=== PATIENT | male | born 1950 | race Caucasian/White ===

== ENCOUNTER 2019-07-20 17:30 | Emergency (ER) | payer OTHER ==
[2019-07-20] MEDS ORDERED: Levofloxacin500mg IV 500 MG/100 ML BAG IV ONE (18:15)
[2019-07-20] MEDS ORDERED: NA CHLORIDE 0.9% 1,000 ML ONE (18:15)
[2019-07-20 19:02] LABS: Absolute Lymphocytes (CBC) 2.2 K/uL (0.7-4.9); Basophils % 0.5 % (0-1.3); Lymphocytes % 29.1 % (15.3-44.8); MPV 9.7 fL (7.6-11.3); RBC Red Blood Cell Count 5.02 M/uL (4.33-5.43)
[2019-07-20 19:05] LABS: Protime INR 1.03
[2019-07-20 19:25] LABS: ALT/SGPT 25 U/L (12-78); AST/SGOT 14 U/L (15-37); Albumin 4.1 g/dL (3.4-5.0); Alkaline Phosphatase 89 U/L (45-117); BUN Blood Urea Nitrogen 8 mg/dL (7-18); Bicarbonate 27 mmol/L (21-32); Bilirubin Direct 0.1 mg/dL (0-0.2); Bilirubin Total 0.4 mg/dL (0.2-1.0); Glucose Level 105 mg/dL (74-106); Lipase 92 U/L (73-393); Magnesium 2.2 mg/dL (1.8-2.4); NT PRO-BNP 41 pg/mL (<125); Potassium 3.7 mmol/L (3.5-5.1); Protein, Total 7.8 g/dL (6.4-8.2); Sodium Level 135 mmol/L (136-145); Troponin (Emerg Dept Use Only) < 0.02 ng/mL (0.0-0.045)
[2019-07-20 19:37] LABS: Urine Blood NEGATIVE (NEG); Urine Glucose NEGATIVE (NEG); Urine Protein NEGATIVE (NEG); Urine Specific Gravity <1.005 (1.005-1.030)
--- NOTE | 2019-07-20 20:20 | RAD REPORT ---
EXAM DESCRIPTION: Mackenzie Single View07/20/2019 6:18 pm CLINICAL HISTORY: Chest pain COMPARISON: 2017 FINDINGS: The lungs appear clear of acute infiltrate. The heart is normal size IMPRESSION: No acute abnormalities displayed
--- NOTE | 2019-07-20 20:31 | RAD REPORT ---
EXAM DESCRIPTION: CT - Abdomen Pelvis Wo Contrast - 07/20/2019 7:57 pm CLINICAL HISTORY: Abdominal pain /left lower quadrant pain with diarrhea COMPARISON: None TECHNIQUE: Computed axial tomography of the abdomen and pelvis was obtained. IV was not requested. O ral contrast was given. Coronal reconstructions performed. All CT scans are performed using dose optimization technique as appropriate and may include automated exposure control or mA/KV adjustment according to patient size. FINDINGS: The evaluation of solid organs and vessels is limited secondary to the lack of contrast a dministration. Sub centimeter low-density area within the right lobe of the liver nonspecific but probably a cyst Spleen, pancreas and adrenals appear grossly normal A 27 millimeter low-density mass extends off the right kidney. It is nonspecific but may represent cy st. 1 millimeter nonobstructing right renal calculus. Mild bilateral hydronephrosis and dilatation th e ureters bilaterally. The bladder is markedly distended. The prostate gland is mildly enlarged. Asymmetric tissue extends from the anterior left aspect of the prostate abutting the bladder. There is no evidence diverticulitis The abdominal aorta is ectatic with an AP diameter of 2.9 centimeters. Tiny umbilical hernia The wall of the proximal stomach appears thickened IMPRESSION: Marked bladder distention. Bilateral dilatation of the ureters with mild hydronephrosis may be the sequela of the bladder distention. After the bladder is decompressed with a Macdonald catheter ultrasound of the kidneys would be helpful to see if the hydronephrosis has resolved Apparent thickening of the wall of the proximal stomach may be secondary to pathology such as inflamm ation or mass. Incomplete distention is a another consideration Prominent asymmetric tissue extends from the left anterior aspect of the prostate abutting the bladde r. This may represent prostatic hypertrophy or neoplasm
--- NOTE | 2019-07-20 22:18 | EDPHYS ---
Physician Documentation [facility] Name: Ryan Carr Age: 69 yrs Sex: Male : 1950 Arrival Date: 07/20/2019 Time: 17:33 Bed 13 Private MD: Eduardo Givens HPI: 07/20 18:08 This 69 yrs old Male presents to ER via Ambulatory with complaints of sue Abdominal Pain. 18:08 The patient presents with abdominal pain in the lower abdomen, in the left upper sue quadrant. Onset: The symptoms/episode began/occurred 3 day(s) ago. The symptoms do not radiate. Associated signs and symptoms: none. Modifying factors: The symptoms are alleviated by nothing, the symptoms are aggravated by nothing. Severity of pain: At its worst the pain was mild in the emergency department the pain is unchanged. The patient has experienced similar episodes in the past, several times. Historical: - Allergies: 17:39 Iodine; aa5 17:39 Flagyl; aa5 17:39 Iodinated Contrast Media - IV Dye; aa5 17:39 SUCCINYLCHOLINE; aa5 - PMHx: 17:42 Hypertension; Hyperlipidemia; Faisal's esophagus; Arthritis; Acid Reflux; aa5 Schizoaffective disorder; - PSHx: 17:42 Tonsillectomy; Appendectomy; Cholecystectomy; Rhinoplasty; kidney stones; fara knees; aa5 - Immunization history:: Flu vaccine is not up to date. - Social history:: Smoking status: Patient uses tobacco products, smokes two packs cigarettes per day. - Ebola Screening: : No symptoms or risks identified at this time. - Family history:: not pertinent. ROS: 18:08 Constitutional: Negative for fever, chills, and weight loss, Eyes: Negative for injury, sue pain, redness, and discharge, ENT: Negative for injury, pain, and discharge, Neck: Negative for injury, pain, and swelling, Cardiovascular: Negative for chest pain, palpitations, and edema, Respiratory: Negative for shortness of breath, cough, wheezing, and pleuritic chest pain, Back: Negative for injury and pain, : Negative for injury, bleeding, discharge, and swelling, MS/Extremity: Negative for injury and deformity, Skin: Negative for injury, rash, and discoloration, Neuro: Negative for headache, weakness, numbness, tingling, and seizure, Psych: Negative for depression, anxiety, suicide ideation, homicidal ideation, and hallucinations, Allergy/Immunology: Negative for hives, rash, and allergies, Endocrine: Negative for neck swelling, polydipsia, polyuria, polyphagia, and marked weight changes, Hematologic/Lymphatic: Negative for swollen nodes, abnormal bleeding, and unusual bruising. 18:08 Abdomen/GI: Positive for abdominal pain, of the left lower quadrant. Exam: 18:08 Constitutional: This is a well developed, well nourished patient who is awake, alert, sue and in no acute distress. Head/Face: Normocephalic, atraumatic. Eyes: Pupils equal round and reactive to light, extra-ocular motions intact. Lids and lashes normal. Conjunctiva and sclera are non-icteric and not injected. Cornea within normal limits. Periorbital areas with no swelling, redness, or edema. ENT: Nares patent. No nasal discharge, no septal abnormalities noted. Tympanic membranes are normal and external auditory canals are clear. Oropharynx with no redness, swelling, or masses, exudates, or evidence of obstruction, uvula midline. Mucous membranes moist. Neck: Trachea midline, no thyromegaly or masses palpated, and no cervical lymphadenopathy. Supple, full range of motion without nuchal rigidity, or vertebral point tenderness. No Meningismus. Chest/axilla: Normal chest wall appearance and motion. Nontender with no deformity. No lesions are appreciated. Cardiovascular: Regular rate and rhythm with a normal S1 and S2. No gallops, murmurs, or rubs. Normal PMI, no JVD. No pulse deficits. Respiratory: Lungs have equal breath sounds bilaterally, clear to auscultation and percussion. No rales, rhonchi or wheezes noted. No increased work of breathing, no retractions or nasal flaring. Back: No spinal tenderness. No costovertebral tenderness. Full range of motion. Male : Normal genitalia with no discharge or lesions. Skin: Warm, dry with normal turgor. Normal color with no rashes, no lesions, and no evidence of cellulitis. MS/ Extremity: Pulses equal, no cyanosis. Neurovascular intact. Full, normal range of motion. Neuro: Awake and alert, GCS 15, oriented to person, place, time, and situation. Cranial nerves II-XII grossly intact. Motor strength 5/5 in all extremities. Sensory grossly intact. Cerebellar exam normal. Normal gait. Psych: Awake, alert, with orientation to person, place and time. Behavior, mood, and affect are within normal limits. 18:08 Abdomen/GI: Inspection: abdomen appears normal, Bowel sounds: normal, Palpation: mild abdominal tenderness, in the left lower quadrant, Liver: no appreciated palpable abnormalities, Hernia: not appreciated. Vital Signs: 17:39 BP 135 / 82; Pulse 77; Resp 18 S; Temp 97.4(TE); Pulse Ox 99% on R/A; Weight 97.98 kg aa5 (R); Height 5 ft. 9 in. (175.26 cm) (R); Pain 3/10; 19:30 BP 127 / 79; Pulse 60; Resp 16; Pulse Ox 98% on R/A; Pain 0/10; aa1 20:30 BP 124 / 82; Pulse 66; Resp 18; Pulse Ox 98% on R/A; Pain 2/10; aa1 21:58 BP 143 / 87; Pulse 69; Resp 18; Pulse Ox 99% on R/A; Pain 0/10; aa1 17:39 Body Mass Index 31.90 (97.98 kg, 175.26 cm) aa5 MDM: 17:49 Patient medically screened. [facility] 18:10 Data reviewed: vital signs, nurses notes, lab test result(s), EKG, radiologic studies, sue CT scan, plain films. 20:59 ED course: Examined pt after CT scan. Bladder distention felt upon palpation after pt kb emptied his bladder. Bladder scanner ordered and revealed PVR of 999cc. Henson ordered to be placed. 22:15 Counseling: I had a detailed discussion with the patient and/or guardian regarding: the kb historical points, exam findings, and any diagnostic results supporting the discharge/admit diagnosis, lab results, radiology results, the need for outpatient follow up, a urologist, to return to the emergency department if symptoms worsen or persist or if there are any questions or concerns that arise at home. ED course: Discussed findings with ERP. Agrees with leaving henson in and pt to follow up with urology outpatient. . ED course: Discussed plan of care with pt. In agreement with outpatient follow up. 07/20 18:08 Order name: Basic Metabolic Panel; Complete Time: 19:35 [facility] 07/20 18:08 Order name: CBC with Diff; Complete Time: 19:35 sue 07/20 18:08 Order name: LFT's; Complete Time: 19:35 [facility] 07/20 18:08 Order name: Magnesium; Complete Time: 19:35 [facility] 07/20 18:08 Order name: NT PRO-BNP; Complete Time: 19:35 [facility] 07/20 18:08 Order name: PT-INR; Complete Time: 19:10 [facility] 07/20 18:08 Order name: Troponin (emerg Dept Use Only); Complete Time: 19:35 [facility] 07/20 18:08 Order name: XRAY Chest (1 view); Complete Time: 20:36 [facility] 07/20 18:08 Order name: Lipase; Complete Time: 19:35 [facility] 07/20 18:08 Order name: Urine Culture [facility] 07/20 19:13 Order name: Urine Dipstick--Ancillary (enter results); Complete Time: 19:54 em1 07/20 18:08 Order name: EKG; Complete Time: 18:09 [facility] 07/20 18:08 Order name: Cardiac monitoring; Complete Time: 19:39 [facility] 07/20 18:08 Order name: EKG - Nurse/Tech; Complete Time: 19:39 [facility] 07/20 18:08 Order name: IV Saline Lock; Complete Time: 19:10 [facility] 07/20 18:08 Order name: Labs collected and sent; Complete Time: 19:10 [facility] 07/20 18:08 Order name: O2 Per Protocol; Complete Time: 19:10 [facility] 07/20 18:08 Order name: O2 Sat Monitoring; Complete Time: 19:10 [facility] 07/20 18:08 Order name: Urine Dipstick-Ancillary (obtain specimen); Complete Time: 19:12 [facility] 07/20 18:34 Order name: Abdomen ; Complete Time: 20:36 EDMS 07/20 20:38 Order name: US Rp Exam Limited kb 07/20 20:45 Order name: Bladder Scanner; Complete Time: 21:15 kb 07/20 20:58 Order name: Henson; Complete Time: 21:15 kb Administered Medications: 19:10 Drug: NS 0.9% 500 ml Route: IV; Rate: bolus; Site: left antecubital; jl7 19:30 Follow up: IV Status: Completed infusion; IV Intake: 500ml aa1 19:10 Drug: levofloxacin 500 mg Volume: 100 ml; Route: IVPB; Infused Over: 60 mins; Site: jl7 left antecubital; 20:10 Follow up: IV Status: Completed infusion aa 19:31 Drug: NS 0.9% 1000 ml Route: IV; Rate: 125 ml/hr; Site: right antecubital; aa1 22:34 Follow up: IV Status: Completed infusion aa1 Disposition: 07/21 07:44 Co-signature as Attending Physician, Eduardo Ashley MD I agree with the assessment and sue plan of care. Disposition: 07/20/19 22:17 Discharged to Home. Impression: Retention of urine, Unspecified hydronephrosis, Lower abdominal pain, unspecified, Enlarged prostate. - Condition is Stable. - Discharge Instructions: Abdominal Pain, Adult, [id number], Acute Urinary Retention, Male, [id number]-[id number], Henson Catheter Care, Adult, [id number]-[id number]. - Medication Reconciliation Form, Thank You Letter, Antibiotic Education, Prescription Opioid Use form. - Follow up: Emergency Department; When: As needed; Reason: Worsening of condition. Follow up: Private Physician; When: 2 - 3 days; Reason: Recheck today's complaints, Continuance of care, Re-evaluation by your physician. Follow up: Ezekiel Gillis MD; When: 1 - 2 days; Reason: Recheck today's complaints. Signatures: Dispatcher [employer] [facility] Kamla Tian, VISITOR SERVICES ASSISTANT-C VISITOR SERVICES ASSISTANT-Ckb Concepcion Haji RN RN aa1 Eduardo Ashley MD MD cha Calderon, Audri RN RN aa5 Karri Roth RN RN jl7 Corrections: (The following items were deleted from the chart) 07/20 18:34 18:09 Abdomen Pelvis W Con+CT.RAD.BRZ ordered. [facility] 22:17 22:17 07/20/2019 22:17 Discharged to Home. Impression: Retention of urine; Unspecified kb hydronephrosis; Lower abdominal pain, unspecified. Condition is Stable. Forms are Medication Reconciliation Form, Thank You Letter, Antibiotic Education, Prescription Opioid Use. Follow up: Emergency Department; When: As needed; Reason: Worsening of condition. Follow up: Private Physician; When: 2 - 3 days; Reason: Recheck today's complaints, Continuance of care, Re-evaluation by your physician. kb 22:21 22:17 07/20/2019 22:17 Discharged to Home. Impression: Retention of urine; Unspecified kb hydronephrosis; Lower abdominal pain, unspecified; Enlarged prostate. Condition is Stable. Forms are Medication Reconciliation Form, Thank You Letter, Antibiotic Education, Prescription Opioid Use. Follow up: Emergency Department; When: As needed; Reason: Worsening of condition. Follow up: Private Physician; When: 2 - 3 days; Reason: Recheck today's complaints, Continuance of care, Re-evaluation by your physician. kb 22:37 22:21 07/20/2019 22:17 Discharged to Home. Impression: Retention of urine; Unspecified aa1 hydronephrosis; Lower abdominal pain, unspecified; Enlarged prostate. Condition is Stable. Discharge Instructions: Abdominal Pain, Adult, Avpu-it-Iizl, Acute Urinary Retention, Male, Jfyp-fe-[id number], Henson Catheter Care, Adult, Avrc-xg-[id number]. Forms are Medication Reconciliation Form, Thank You Letter, Antibiotic Education, Prescription Opioid Use. Follow up: Emergency Department; When: As needed; Reason: Worsening of condition. Follow up: Private Physician; When: 2 - 3 days; Reason: Recheck today's complaints, Continuance of care, Re-evaluation by your physician. Follow up: Ezekiel Gillis; When: 1 - 2 days; Reason: Recheck today's complaints. kb
--- NOTE | 2019-07-20 22:18 | ER ---
Nurse's Notes [facility] Name: Ryan Carr Age: 69 yrs Sex: Male : 1950 Arrival Date: 07/20/2019 Time: 17:33 Bed 13 Private MD: Diagnosis: Retention of urine;Unspecified hydronephrosis;Lower abdominal pain, unspecified;Enlarged prostate Presentation: 07/20 17:38 Presenting complaint: Patient states: LLQ pain x 2 weeks ago. Pt also reports diarrhea. aa5 Denies nausea/vomiting. Pt states "I had a CT scan but I am allergic to iodine and they couldn't do the CT scan". Transition of care: patient was not received from another setting of care. Onset of symptoms was July 2019. Risk Assessment: Do you want to hurt yourself or someone else? Patient reports no desire to harm self or others. Initial Sepsis Screen: Does the patient meet any 2 criteria? No. Patient's initial sepsis screen is negative. Does the patient have a suspected source of infection? No. Patient's initial sepsis screen is negative. Care prior to arrival: None. 17:38 Method Of Arrival: Ambulatory aa5 17:38 Acuity: VIRGIE 3 aa5 Historical: - Allergies: 17:39 Iodine; aa5 17:39 Flagyl; aa5 17:39 Iodinated Contrast Media - IV Dye; aa5 17:39 SUCCINYLCHOLINE; aa5 - PMHx: 17:42 Hypertension; Hyperlipidemia; Faisal's esophagus; Arthritis; Acid Reflux; aa5 Schizoaffective disorder; - PSHx: 17:42 Tonsillectomy; Appendectomy; Cholecystectomy; Rhinoplasty; kidney stones; fara knees; aa5 - Immunization history:: Flu vaccine is not up to date. - Social history:: Smoking status: Patient uses tobacco products, smokes two packs cigarettes per day. - Ebola Screening: : No symptoms or risks identified at this time. - Family history:: not pertinent. Screenin:09 Abuse screen: Denies threats or abuse. Denies injuries from another. Nutritional jl7 screening: No deficits noted. Tuberculosis screening: No symptoms or risk factors identified. Fall Risk IV access (20 points). Total Cannon Fall Scale indicates No Risk (0-24 pts). Assessment: 18:30 General: Appears in no apparent distress. uncomfortable, Behavior is calm, cooperative, jl7 appropriate for age. Pain: Complains of pain in left lower quadrant Pain currently is 3 out of 10 on a pain scale. Neuro: Level of Consciousness is awake, alert, obeys commands, Oriented to person, place, time, situation. Cardiovascular: Patient's skin is warm and dry. Respiratory: Airway is patent Respiratory effort is even, unlabored, Respiratory pattern is regular, symmetrical. GI: Bowel sounds present X 4 quads. Abd is soft. : No signs and/or symptoms were reported regarding the genitourinary system. EENT: No signs and/or symptoms were reported regarding the EENT system. Derm: Skin is pink, warm \\T\\ dry. Musculoskeletal: No signs and/or symptoms reported regarding the musculoskeletal system. 19:10 Reassessment: Patient appears in no apparent distress at this time. Patient and/or aa1 family updated on plan of care and expected duration. Pain level reassessed. Patient is alert, oriented x 3, equal unlabored respirations, skin warm/dry/pink. Awaiting CT scan. 19:51 Reassessment: Patient appears in no apparent distress at this time. Patient and/or aa1 family updated on plan of care and expected duration. Pain level reassessed. Patient is alert, oriented x 3, equal unlabored respirations, skin warm/dry/pink. Pt taken to CT at this time. 20:02 Reassessment: Pt returned from CT at this time. aa1 21:05 Reassessment: Patient appears in no apparent distress at this time. Patient and/or aa1 family updated on plan of care and expected duration. Pain level reassessed. Patient is alert, oriented x 3, equal unlabored respirations, skin warm/dry/pink. Post void bladder scan completed showing >999 cc retained urine. Henson catheter to be inserted and renal u/s to be completed once bladder has fully emptied. 21:20 Reassessment: Ultrasound at bedside for renal study. aa1 21:58 Reassessment: Patient appears in no apparent distress at this time. Patient and/or aa1 family updated on plan of care and expected duration. Pain level reassessed. Patient is alert, oriented x 3, equal unlabored respirations, skin warm/dry/pink. Awaiting provider reassessment. 22:35 Reassessment: Patient appears in no apparent distress at this time. Patient is alert, aa1 oriented x 3, equal unlabored respirations, skin warm/dry/pink. Discussed d/c \\T\\ f/u instructions with pt \\T\\ spouse; denies questions or concerns at this time. Pt dc'd with henson catheter in place until able to follow up with urology Patient denies pain at this time. Patient states feeling better. Vital Signs: 17:39 BP 135 / 82; Pulse 77; Resp 18 S; Temp 97.4(TE); Pulse Ox 99% on R/A; Weight 97.98 kg aa5 (R); Height 5 ft. 9 in. (175.26 cm) (R); Pain 3/10; 19:30 BP 127 / 79; Pulse 60; Resp 16; Pulse Ox 98% on R/A; Pain 0/10; aa1 20:30 BP 124 / 82; Pulse 66; Resp 18; Pulse Ox 98% on R/A; Pain 2/10; aa1 21:58 BP 143 / 87; Pulse 69; Resp 18; Pulse Ox 99% on R/A; Pain 0/10; aa1 17:39 Body Mass Index 31.90 (97.98 kg, 175.26 cm) aa5 ED Course: 17:33 Patient arrived in ED. as 17:38 Arm band placed on. aa5 17:39 Triage completed. aa5 17:44 Eduardo Ashley MD is Attending Physician. [facility] 18:12 Karri Roth, RN is Primary Nurse. jl7 18:18 XRAY Chest (1 view) In Process Unspecified. EDMS 18:30 Patient has correct armband on for positive identification. Bed in low position. Call jl7 light in reach. Side rails up X 1. 18:33 Oral contrast reported to be complete. vm2 18:45 Initial lab(s) drawn, by ia, sent to lab. Urine collected: clean catch specimen, clear. jl7 Inserted saline lock: 22 gauge in left antecubital area, using aseptic technique. Blood collected. 19:56 Abdomen In Process Unspecified. EDMS 20:55 Bladder scan completed. >999. aa1 20:59 Kamla Tian FNP-C is PHCP. kb 21:10 Henson cath inserted, using sterile technique, 18 Fr., by me, balloon inflated, to aa1 gravity drainage, returned clear yellow urine. Patient tolerated well. 21:44 US Rp Exam Limited In Process Unspecified. EDMS 22:20 Ezekiel Gillis MD is Referral Physician. kb 22:35 No provider procedures requiring assistance completed. IV discontinued, intact, aa1 bleeding controlled, No redness/swelling at site. Pressure dressing applied. Administered Medications: 19:10 Drug: NS 0.9% 500 ml Route: IV; Rate: bolus; Site: left antecubital; jl7 19:30 Follow up: IV Status: Completed infusion; IV Intake: 500ml aa1 19:10 Drug: levofloxacin 500 mg Volume: 100 ml; Route: IVPB; Infused Over: 60 mins; Site: jl7 left antecubital; 20:10 Follow up: IV Status: Completed infusion aa1 19:31 Drug: NS 0.9% 1000 ml Route: IV; Rate: 125 ml/hr; Site: right antecubital; aa1 22:34 Follow up: IV Status: Completed infusion aa1 Intake: 19:30 IV: 500ml; Total: 500ml. aa1 21:10 IV: 800ml (IV Fluid); Total: 1300ml. aa1 21:10 Henson inserted and immediately returned 2500 cc clear yellow urine aa1 Output: 21:10 Urine: 2500ml (Henson); Total: 2500ml. aa1 21:10 Henson inserted and immediately returned 2500 cc clear yellow urine aa1 Outcome: 22:17 Discharge ordered by . kb 22:35 Discharged to home ambulatory, with significant other. aa1 22:35 Condition: good 22:35 Discharge instructions given to patient, Instructed on discharge instructions, follow up and referral plans. Demonstrated understanding of instructions, follow-up care. 22:37 Patient left the ED. aa1 Signatures: Dispatcher [employer] EDMS Kamla Tian, JAIDA-C ENDOCRINOLOGY TEACHER-Concepcion Tucker RN RN aa1 Eduardo Ashley MD MD cha Martinez, Amelia as Calderon, Audri, RN RN aa5 Karri Roth RN RN jl7 Bobbi Bliss [facility]
[2019-07-20 22:47] VITALS: TEMP 97.4
[2019-07-20 22:51] VITALS: BP 143/87; O2SAT 99
--- NOTE | 2019-07-21 06:54 | EKG ---
Test Date: 2019-07-20 Test Time: 19:06:54 Hand Buffing Wheel Former: JASMIN MEASUREMENT RESULTS: Intervals: Rate: 62 GA: 174 QRSD: 124 QT: 434 QTc: 440 Jackson: P: 46 GA: 174 QRS: 1 T: 43 INTERPRETIVE STATEMENTS: Normal sinus rhythm Right bundle branch block Abnormal ECG Compared to ECG 06/19/2009 08:31:26 Right bundle-branch block now present Electronically Signed On 07-21-19 06:53:37 CDT by Tayo Espinal
--- NOTE | 2019-07-21 08:18 | RAD REPORT ---
EXAM DESCRIPTION: US - Renal Ultrasound-Limited - 07/20/2019 9:44 pm CLINICAL HISTORY: post void to see if hydro resolves Abdominal pain COMPARISON: Abdomen Pelvis Wo Contrast dated 07/20/2019 FINDINGS: Urinary bladder with PVR measurement and left renal sonography were requested The left kidney measures 11.3 x 5.9 x 4.7 cm. Mild left hydronephrosis persisted despite emptying of the bladder. Prevoid bladder volume is 1860 mL. Postvoid bladder volume 180 mL. No bladder mass or ureterocele alejandro ntified.
== END 2019-07-20 22:37 | disposition home or self-care (01) ==
LOC: ER 17:30
DX: N13.30 Unspecified hydronephrosis (principal); N40.0 Benign prostatic hyperplasia without lower urinary tract symptoms; R33.9 Retention of urine, unspecified; F17.210 Nicotine dependence, cigarettes, uncomplicated; I10 Essential (primary) hypertension; Z88.8 Allergy status to other drugs, medicaments and biological substances; Z91.041 Radiographic dye allergy status; Z91.048 Other nonmedicinal substance allergy status
CPT/HCPCS: 87088; 85025; 87086; 80048; 36415; 83735; 85610; 80076; 81003; 84484; 83690; 83880; 74176; 71045; 76775; J7030; 93005

== ENCOUNTER 2021-05-09 14:12 | Emergency (ER) | payer OTHER ==
[2021-05-09 20:21] LABS: Absolute Lymphocytes (CBC) 1.8 K/uL (0.7-4.9); Basophils % 0.4 % (0-1.3); Hematocrit 44.4 % (39.6-49.0); Lymphocytes % 27.5 % (15.3-44.8); MPV 8.6 fL (7.6-11.3); RBC Red Blood Cell Count 4.81 M/uL (4.33-5.43)
[2021-05-09 20:32] LABS: Urine Blood Negative (Negative); Urine Glucose Negative (Negative); Urine Protein Negative (Negative); Urine pH 5.5 (5.0-7.0)
[2021-05-09 20:39] LABS: ALT/SGPT 27 U/L (12-78); AST/SGOT 15 U/L (15-37); Albumin 4.1 g/dL (3.4-5.0); Alkaline Phosphatase 79 U/L (45-117); BUN Blood Urea Nitrogen 6 mg/dL (7-18); Bicarbonate 26 mmol/L (21-32); Bilirubin Direct 0.2 mg/dL (0-0.2); Bilirubin Total 0.5 mg/dL (0.2-1.0); Glucose Level 99 mg/dL (74-106); Lipase 43 U/L (73-393); Potassium 3.6 mmol/L (3.5-5.1); Protein, Total 7.6 g/dL (6.4-8.2); Sodium Level 138 mmol/L (136-145)
--- NOTE | 2021-05-09 21:16 | EDPHYS ---
Physician Documentation [facility] Name: Ryan Carr Age: 71 yrs Sex: Male : 1950 Arrival Date: 05/09/2021 Time: 14:16 Bed Treatment Private MD: Abdifatah Phelps ED Physician Norma Xiao HPI: 05/09 20:05 This 71 yrs old Male presents to ER via Ambulatory with complaints of Urinary ma2 Retention. 20:05 The patient presents with urinary symptoms, dribbling of urine, retention. Onset: The ma2 symptoms/episode began/occurred gradually, 2 day(s) ago. Associated signs and symptoms: Pertinent negatives: diarrhea, fever, hematuria, nausea. Severity of symptoms: At their worst the symptoms were mild, in the emergency department the symptoms are unchanged. The patient has experienced similar episodes in the past. Historical: - Allergies: 14:53 Flagyl; aa5 14:53 Iodinated Contrast Media - IV Dye; aa5 14:53 Iodine; aa5 14:53 SUCCINYLCHOLINE; aa5 - PMHx: 14:53 acid reflux; Arthritis; epi's esophagus; Hyperlipidemia; Hypertension; aa5 schizoaffective disorder; 14:54 Prostate Cancer; aa5 - PSHx: 14:53 TURP; aa5 - Immunization history:: Client reports receiving the 2nd dose of the Covid vaccine, Flu vaccine is up to date. - Social history:: Smoking status: Patient reports the use of cigarette tobacco products, smokes two packs cigarettes per day. - Family history:: not pertinent. ROS: 20:05 Constitutional: Negative for fever, chills, and weight loss. ma2 20:05 All other systems are negative. Exam: 20:05 Constitutional: This is a well developed, well nourished patient who is awake, alert, ma2 and in no acute distress. Head/Face: Normocephalic, atraumatic. Eyes: Pupils equal round and reactive to light, extra-ocular motions intact. Lids and lashes normal. Conjunctiva and sclera are non-icteric and not injected. Cornea within normal limits. Periorbital areas with no swelling, redness, or edema. ENT: Nares patent. No nasal discharge, no septal abnormalities noted. Tympanic membranes are normal and external auditory canals are clear. Oropharynx with no redness, swelling, or masses, exudates, or evidence of obstruction, uvula midline. Mucous membranes moist. Neck: Trachea midline, no thyromegaly or masses palpated, and no cervical lymphadenopathy. Supple, full range of motion without nuchal rigidity, or vertebral point tenderness. No Meningismus. Chest/axilla: Normal chest wall appearance and motion. Nontender with no deformity. No lesions are appreciated. Cardiovascular: Regular rate and rhythm with a normal S1 and S2. No gallops, murmurs, or rubs. Normal PMI, no JVD. No pulse deficits. Respiratory: Lungs have equal breath sounds bilaterally, clear to auscultation and percussion. No rales, rhonchi or wheezes noted. No increased work of breathing, no retractions or nasal flaring. Abdomen/GI: Soft, non-tender, with normal bowel sounds. No distension or tympany. No guarding or rebound. No evidence of tenderness throughout. Skin: Warm, dry with normal turgor. Normal color with no rashes, no lesions, and no evidence of cellulitis. MS/ Extremity: Pulses equal, no cyanosis. Neurovascular intact. Full, normal range of motion. Neuro: Awake and alert, GCS 15, oriented to person, place, time, and situation. Cranial nerves II-XII grossly intact. Motor strength 5/5 in all extremities. Sensory grossly intact. Cerebellar exam normal. Normal gait. Vital Signs: 14:51 BP 161 / 89; Pulse 99; Resp 18 S; Temp 98.1(TE); Pulse Ox 98% on R/A; Weight 90.72 kg aa5 (R); Height 5 ft. 9 in. (175.26 cm) (R); 19:24 BP 175 / 99; Pulse 74; Resp 17; Temp 98.0(O); Pulse Ox 100% on R/A; mh5 20:53 BP 176 / 83; Pulse 72; Resp 18; Pulse Ox 97% on R/A; mh5 21:40 BP 146 / 88; Pulse 78; Resp 16 S; Temp 98.4(TE); Pulse Ox 98% on R/A; bb 14:51 Body Mass Index 29.53 (90.72 kg, 175.26 cm) aa5 MDM: 20:00 Patient medically screened. ma2 20:05 Differential diagnosis: UTI, urinary retention, prostatitis, urethritis. nj2 20:06 ED course: Bladder scan showed 700 mL prevoid, and 500 postvoid, will insert a Macdonald,. ma2 21:15 Data reviewed: vital signs, nurses notes. Counseling: I had a detailed discussion with kevin the patient and/or guardian regarding: the historical points, exam findings, and any diagnostic results supporting the discharge/admit diagnosis, the presence of at least one elevated blood pressure reading (>120/80) during this emergency department visit, the need for outpatient follow up. Response to treatment: the patient's symptoms have markedly improved after treatment. 05/09 19:15 Order name: Basic Metabolic Panel [facility] 05/09 19:15 Order name: CBC with Diff; Complete Time: 21:02 [facility] 05/09 19:15 Order name: Hepatic Function; Complete Time: 21:02 [facility] 05/09 19:15 Order name: Lipase; Complete Time: 21:02 [facility] 05/09 19:15 Order name: Basic Metabolic Panel; Complete Time: 21:02 [facility] 05/09 20:32 Order name: Urine Dipstick-Ancillary; Complete Time: 21:02 [facility] 05/09 19:15 Order name: Bladder Scanner; Complete Time: 19:41 [facility] 05/09 19:15 Order name: IV Saline Lock; Complete Time: 20:33 [facility] 05/09 19:15 Order name: Labs collected and sent; Complete Time: 20:33 [facility] 05/09 19:27 Order name: Urine Dipstick-Ancillary (obtain specimen); Complete Time: 20:33 [facility] 05/09 20:00 Order name: Macdonald-Coude; Complete Time: 20:33 [facility] Administered Medications: No medications were administered Disposition Summary: 05/09/21 21:16 Discharge Ordered Location: Home ma2 Condition: Stable [facility] Diagnosis - Retention of urine, unspecified [facility] Followup: nj2 - With: Private Physician - When: Tomorrow - Reason: Continuance of care Followup: nj2 - With: Sergio Parra MD - When: Tomorrow - Reason: Continuance of care Discharge Instructions: - Discharge Summary Sheet nj2 - Acute Urinary Retention, Male, [id number] [facility] Forms: - Medication Reconciliation Form ma2 - Thank You Letter ma2 - Antibiotic Education ma2 - Prescription Opioid Use ma2 Signatures: Dispatcher [employer] Rose Marsh RN RN aa5 Norma Xiao MD MD ma2
--- NOTE | 2021-05-09 21:16 | ER ---
Nurse's Notes [facility] Name: Ryan Carr Age: 71 yrs Sex: Male : 1950 Arrival Date: 05/09/2021 Time: 14:16 Bed Treatment Private MD: Abdifatah Phelps Diagnosis: Retention of urine, unspecified Presentation: 05/09 14:51 Chief complaint: Patient states: "my urine output has decreased over the last 3 days aa5 and I am not sure it's because I don't have the urine or because I am unable to pee all the way". Pt reports TURP approximately 1 1/2 yrs ago. 14:51 Acuity: VIRGIE 3 aa5 14:51 Coronavirus screen: At this time, the client does not indicate any symptoms associated aa5 with coronavirus-19. Ebola Screen: Patient negative for fever greater than or equal to 101.5 degrees Fahrenheit, and additional compatible Ebola Virus Disease symptoms. Initial Sepsis Screen: Does the patient meet any 2 criteria? HR > 90 bpm. Does the patient have a suspected source of infection? No. Patient's initial sepsis screen is negative. Risk Assessment: Do you want to hurt yourself or someone else? Patient reports no desire to harm self or others. Onset of symptoms was April 2021. 14:51 Method Of Arrival: Ambulatory aa5 Historical: - Allergies: 14:53 Flagyl; aa5 14:53 Iodinated Contrast Media - IV Dye; aa5 14:53 Iodine; aa5 14:53 SUCCINYLCHOLINE; aa5 - PMHx: 14:53 acid reflux; Arthritis; epi's esophagus; Hyperlipidemia; Hypertension; aa5 schizoaffective disorder; 14:54 Prostate Cancer; aa5 - PSHx: 14:53 TURP; aa5 - Immunization history:: Client reports receiving the 2nd dose of the Covid vaccine, Flu vaccine is up to date. - Social history:: Smoking status: Patient reports the use of cigarette tobacco products, smokes two packs cigarettes per day. - Family history:: not pertinent. Screenin:30 Abuse screen: Denies threats or abuse. Nutritional screening: No deficits noted. bb Tuberculosis screening: No symptoms or risk factors identified. Fall Risk None identified. Assessment: 19:30 General: Appears in no apparent distress. uncomfortable, Behavior is calm, cooperative. bb Pain: Complains of pain in suprapubic area. Neuro: Level of Consciousness is awake, alert, obeys commands, Oriented to person, place, time, situation. Cardiovascular: Capillary refill < 3 seconds Patient's skin is warm and dry. Respiratory: Airway is patent Respiratory effort is even, unlabored. GI: No signs and/or symptoms were reported involving the gastrointestinal system. : Reports inability to void. Derm: Skin is pink, warm \\T\\ dry. Musculoskeletal: Circulation, motion, and sensation intact. 21:38 Reassessment: Patient is alert, oriented x 3, equal unlabored respirations, skin bb warm/dry/pink. henson catheter in place, pt states he has had one in the past for several months will f/u with urology. Pt verbalized understanding of and agrees to plan of care discharge instructions given pt ambulated with steady gait to exit accompanied by family. Vital Signs: 14:51 BP 161 / 89; Pulse 99; Resp 18 S; Temp 98.1(TE); Pulse Ox 98% on R/A; Weight 90.72 kg aa5 (R); Height 5 ft. 9 in. (175.26 cm) (R); 19:24 BP 175 / 99; Pulse 74; Resp 17; Temp 98.0(O); Pulse Ox 100% on R/A; mh5 20:53 BP 176 / 83; Pulse 72; Resp 18; Pulse Ox 97% on R/A; mh5 21:40 BP 146 / 88; Pulse 78; Resp 16 S; Temp 98.4(TE); Pulse Ox 98% on R/A; bb 14:51 Body Mass Index 29.53 (90.72 kg, 175.26 cm) aa5 ED Course: 14:16 Patient arrived in ED. as 14:16 Abdifatah Phelps DO is Private Physician. as 14:51 Arm band placed on. aa5 14:54 Triage completed. aa5 19:22 Norma Xiao MD is Attending Physician. ma2 19:25 Patient has correct armband on for positive identification. Bed in low position. [facility] in reach. Adult w/ patient. Pulse ox on. NIBP on. 19:30 No provider procedures requiring assistance completed. bb 19:34 Bladder scan completed. 688 PRIOR TO VOIDING AFTER VOIDING 584. mh5 20:14 Maeve Ding, RN is Primary Nurse. bb 20:32 Initial lab(s) drawn, by ia, sent to lab. Urine collected: Henson catheter specimen, [facility] clear, Amount Returned: 700mL. 20:33 Basic Metabolic Panel Sent. 5 20:33 Basic Metabolic Panel Sent. 5 20:33 Hepatic Function Sent. 5 20:34 Lipase Sent. 5 20:34 Inserted saline lock: 22 gauge in right hand, using aseptic technique. Blood collected. 5 20:55 Henson cath inserted, using sterile technique, 16 Fr.. 5 21:16 Sergio Parra MD is Referral Physician. ma2 21:39 IV discontinued, intact, bleeding controlled, No redness/swelling at site. Pressure bb dressing applied. Administered Medications: No medications were administered Outcome: 21:16 Discharge ordered by MD. ma2 21:39 Discharged to home ambulatory, with family. bb 21:39 Condition: stable 21:39 Discharge instructions given to patient, Instructed on discharge instructions, follow up and referral plans. Demonstrated understanding of instructions, follow-up care. 21:40 Patient left the ED. bb Signatures: Mandy Stevens Brenda, RN RN Rose Mohamud, JERO RN Ginger [facility] Norma Xiao MD MD [facility]
[2021-05-10 02:43] VITALS: BP 146/88; TEMP 98.4; O2SAT 98
== END 2021-05-09 21:40 | disposition home or self-care (01) ==
LOC: ER 14:12
DX: R33.9 Retention of urine, unspecified (principal); I10 Essential (primary) hypertension; F17.210 Nicotine dependence, cigarettes, uncomplicated; Z85.46 Personal history of malignant neoplasm of prostate; Z91.041 Radiographic dye allergy status; Z91.048 Other nonmedicinal substance allergy status
CPT/HCPCS: 36415; 51702; 80048; 80076; 81003; 83690; 85025; 99284

== ENCOUNTER 2024-09-20 06:19 | Day surgery (SDC) | payer OTHER ==
[2024-09-15 14:48] LABS: Absolute Eosinophils 0.1 K/uL (0-0.5); Absolute Lymphocytes (CBC) 1.9 K/uL (0.7-4.9); Absolute Monocytes 0.5 K/uL (0.1-1.3); Basophils % 0.5 % (0-1.3); Hematocrit 39.1 % (39.6-49.0); Hemoglobin 12.8 g/dL (13.6-17.9); MCH 29.6 pg (27.0-35.0); MCHC 32.8 g/dL (32.0-36.0); MPV 8.7 fL (7.6-11.3); Monocytes % 8.1 % (3.3-12.3); Neutrophils % 61.4 % (41.7-73.7); Platelets 237 thou/uL (152-406); RBC Red Blood Cell Count 4.34 M/uL (4.33-5.43); Red Cell Distribution Width 13.9 % (12.1-15.2)
[2024-09-15 14:52] LABS: Protime INR 1.07
[2024-09-15 15:05] LABS: Anion Gap 7.2 mEq/L (5.0-15.0); Potassium 4.2 mEq/L (3.5-5.1)
[2024-09-20] MEDS ORDERED: CEFEPIME 1 GM/VIAL ONE (06:21)
[2024-09-20] MEDS ORDERED: Ringers Lactate 1,000 ML IV ONE (06:21)
[2024-09-20] MEDS ORDERED: NA CHLORIDE 0.9% 100 ML ONE (06:37)
[2024-09-20] MEDS: CEFEPIME 1 GM in NA CHLORIDE 0.9% 100 ML IV ONE (06:45)
[2024-09-20] MEDS ORDERED: BUPIVACAINE 0.75% (PF) 2 ML SP ONE (06:57)
[2024-09-20] MEDS ORDERED: MORPHINE SULFATE/PF 1 MG/ML (10 ML AMP) ONE (06:57)
[2024-09-20] MEDS ORDERED: NEOSTIGMINE 1 MG/ML -10 ML VIAL ONE (07:14)
[2024-09-20] MEDS ORDERED: LIDOCAINE 2% MPF 5 ML VIAL ONE (07:14)
[2024-09-20] MEDS ORDERED: ONDANSETRON 4 MG/2 ML VIAL ONE (07:14)
[2024-09-20] MEDS ORDERED: propofoL 200 MG/20 ML VIAL IV ONE (07:14)
[2024-09-20] MEDS ORDERED: GLYCOPYRROLATE 0.2 MG/ML SYR ONE (07:14)
[2024-09-20] MEDS ORDERED: MIDAZOLAM HCL 2 MG/2 ML INJ ONE (07:15)
[2024-09-20] MEDS ORDERED: FENTANYL CITR 100 MCG/2 ML ONE ×2 (07:15→08:08)
[2024-09-20] MEDS ORDERED: ROCURONIUM 50 MG/5 ML VIAL IV ONE (07:17)
[2024-09-20] MEDS: GENTAMICIN IV ONE (07:18)
[2024-09-20] MEDS: NA CHLORIDE 0.9% IV ONE (07:18)
[2024-09-20] MEDS ORDERED: dexAMETHasone 10 MG/ML VIAL ONE (07:22)
[2024-09-20] MEDS ORDERED: EPHEDRINE SULF 50 MG/ML VIAL ONE (08:03)
[2024-09-20] MEDS: GENTAMICIN SULF 80 MG/2ML INJ ONE (08:05)
[2024-09-20] MEDS: BUPIVACAINE 0.25% PF 30 ML VIAL ONE (08:32)
[2024-09-20 10:05] VITALS: TEMP 97.1
[2024-09-20 11:23] VITALS: BP 128/79; O2SAT 96
--- NOTE | 2024-09-20 12:26 | RAD REPORT ---
EXAM: Fluoroscopy use, Fluoroscopy <1 Hour HISTORY: HS MAIN SACRAL NEURO MOD COMPARISON: None FINDINGS: A total of 39 images were sent to PACS, during a fluoroscopically guided sacral neuromodula tor placement. No radiologist was involved in protocoling or performance of the study, and no radiologist was present for the duration of the procedure. No interpretation of the saved images will be provided. Total fluoroscopy time: 0.4 minutes. IMPRESSION: Documentation of fluoroscopy use as above.
--- NOTE | 2024-09-20 16:31 | P.OP ---
Date of Service: 09/20/24 Preoperative diagnoses: Detrusor dysfunction Chronic urinary retention Parkinson's disease p successful percutaneous neuromodulation trial BPH with LUTS s/p UroLift Postoperative diagnoses: Detrusor dysfunction Chronic urinary retention Parkinson's disease p successful percutaneous neuromodulation trial BPH with LUTS s/p UroLift Principal procedures: Axonics implanted neuromodulator Gentamicin 80 mg in 100 cc sterile water bladder irrigation 18 Japanese urethral Macdonald catheter exchange Indication for procedure: 74-year-old gentleman with detrusor dysfunction a consequence of chronic obstruction due to BPH in the setting of Parkinson's disease. He underwent Axonics percutaneous trial and was successfully able to void when a voiding trial was performed while the percutaneous leads were in place and stimulating. He had previously undergone a prostatic urethral lift to relieve any prostatic urethral obstruction. He presents today for definitive neuromodulation implantation. 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 Procedure note: The patient was consented in the preoperative holding area before being transferred to the operative suite where general anesthesia was induced. He was given cefepime 1 g and gentamicin approximately 5 mg/kg, 400 mg, IV antimicrobial prophylaxis, and pneumoboots were provided for DVT prophylaxis. After the induction of general anesthesia, his indwelling urethral Macdonald catheter was decompressed of urine, and then I irrigated his bladder with 50 cc of sterile water containing 40 mg gentamicin. I removed a quantity of cloudy urine, and then reinstilled an additional 50 cc of 40 mg of gentamicin in 50 cc sterile water. Leaving this fluid in situ within his bladder, I decompressed the balloon for the catheter and remove the catheter. I then prepped his genitalia with Hibiclens because he had an iodine allergy, and I placed a new 18 Japanese catheter via his urethra into his bladder with ease. That catheter had a plug so that the prior gentamicin solution would not drain out. 15 cc of sterile water was placed in the balloon; and the catheter was secured to his left upper inner thigh using a StatLock. The patient was then flipped into the prone position placed on a thick foam pad with a neuro roll across his upper chest and pillows beneath his shins with padding beneath his knees such that he was in the prone and slightly flexed position. He was situated over the inferior portion of the table such that fluoroscopy would be able to adequately image his pelvis and the lumbosacral spine. His lower back area from the iliac crests all the way down to his buttocks and his buttocks crease around the anus was prepped with ChloraPrep and then draped in standard fashion. I initially marked an area 12 cm from the tip of the coccyx and 2 cm laterally on the patient's left before passing one of the Event[employer] needles through the skin at a 45 degree angle ultimately finding its way through one of the foramina palpably. Quarter percent Marcaine was instilled subcutaneously before the needle puncture was made. Fluoroscopy was then performed in the AP position, and the needle tip did seem about 1 or 2 sacral bodies low at likely S4 or S5. As a result, I targeted a position about 2 cm higher which was again instilled with Marcaine subcutaneously and into the deep tissues down to the sacral spine, and I placed a second needle, leaving the first needle in place, via the skin at a 45 degree angle ultimately palpating through a sacral foramina. This time, fluoroscopic imagery did suggest the needle tip was appropriately positioned at the base of the ischial spines at the level of S3. Testing of each of the 2 needles that admitted surgery revealed no significant anabel response to stimulation and only minimal toe flexion. As a result, I targeted a position approximately 1 cm superior to this; so now 15 cm above the tip of the coccyx, and palpated the way through the foramina. At this time, neurostimulation did reveal appropriate anabel reflex and toe flexion with the stimulator set between 2 and 3 J. I then placed the metal stylette through the needle cannula into the desired position as evidenced fluoroscopically in the lateral position. Over that stylette, the skin was incised using an 11 blade approximately half centimeter in diameter, and I passed the dilator sheath over the stylette until the tip was just beyond the border of the sacral spine as evidenced fluoroscopically in the lateral position. The stylette was removed as well as the metal inner cannula of the dilator sheath, and I then passed tined lead through the sheath until the most proximal fluoroscopically visible lead was visible at the border of the sacrum. We tested the responses in that position, and were able to achieve a anabel reflex and toe flexion, but higher amplitudes were required since the lead seem to deviate more superiorly than desired. I thus rotated the lead until it was coming out and angling more inferiorly in the more desirable position, and we achieved better amplitudes of stimulation at a lower level. As a result, the sheath was removed to deployed the tines of the leads under intermittent spot fluoroscopic imagery until the entirety of the sheath was removed and the tines were appropriately deployed with the most proximal lead contact point just at the border of the sacrum. I then created a pocket within the mid upper aspect of the upper buttocks within the iliac crest region on the right and made a 5 cm incision which was deepened through the subcutaneous tissues and just beneath Rafael's fascia. This was developed until a pocket was just large enough to accommodate the nonrec hargeable battery pack. I then tunneled the lead from its insertion site near the spine all the way over to the pocket for the battery pack, and then connected the lead to the battery with appropriate impedances achieved. The battery pack was then placed within the pocket, and 3-0 Vicryl was used to suture the subcutaneous and Rafael's layer back together on top of the battery pack. Irrigation was performed before the battery pack was inserted, and again after the initial 3-0 Vicryl suture layer had been created. The skin was then closed using running subcutaneous 4-0 Monocryl suture, and the skin was then sealed using Dermabond. The patient was then returned into a supine position flipped onto a stretcher before being awakened from general anesthesia. He was then transferred to the recovery room in good condition. There, the indwelling gentamicin solution was evacuated from within his bladder and he was discharged with a catheter plug in place per his request. Complications: None Discharge disposition: The patient will work with the [employer] representatives to work to achieve optimal stimulation with sensation and the appropriate target areas. Already in the recovery room, the [employer] account service representative, Dalila, explained that he had an excellent response with sensation appreciable at 0.8 around the anus as observed in the recovery room. Starting at the end of this week, he will begin to wean off of the Celexa/citalopram as I instructed in his discharge instructions. Once he has been off the citalopram for at least 48 to 72 hours, he will then start Cipro 500 mg p.o. twice daily for 14 days total. After 5 to 7 days of the Cipro, you may undergo an active voiding trial in the urology clinic to see how well he responds to the implanted neurostimulator device. He should continue the Cipro for the completion of the 14-day course to try to decrease the risk of Pseudomonas colonization of his UroLift implants and the development of chronic infection. Subsequent follow-up should be established with me depending on his success with the voiding trial. If successful, follow-up may be established in approximately 2 to 3 months interval assessment. If unsuccessful, nursing visit follow-up should be established for urethral Macdonald catheter exchange per routine in about 4 to 6 weeks. Subsequent follow-up with me should be established 1 year from his last office cystoscopy.
== END 2024-09-20 11:00 | disposition home or self-care (01) ==
LOC: OR 06:19
PROVIDERS: ATTEND Urology
PROC: 01HY3MZ Insertion of Neurostimulator Lead into Peripheral Nerve, Percutaneous Approach (ICD-10-PCS; 2024-09-20)
PROC: 0JH73BZ Insertion of Single Array Stimulator Generator into Back Subcutaneous Tissue and Fascia, Percutaneous Approach (ICD-10-PCS; principal; 2024-09-20 07:30)
DX: R33.8 Other retention of urine (principal); N31.8 Other neuromuscular dysfunction of bladder; R39.14 Feeling of incomplete bladder emptying; N40.1 Benign prostatic hyperplasia with lower urinary tract symptoms; G20.A1 Parkinson's disease without dyskinesia, without mention of fluctuations
CPT/HCPCS: 64590; 87088; 85025; 87086; 80048; 36415; 85610; 87077; 87186; 64561; J2704; J2710; J1580 ×2; J2003; J3010 ×2; J1100; J2405; J7120; J0692 ×2; 76000; J2250